=== PATIENT | male | born 1975 | race Hispanic/Latino ===

== ENCOUNTER 2021-04-01 06:19 | Inpatient (IN) | payer OTHER ==
[2021-04-01] VITALS (16 sets, daily range): BP systolic 101–135; BP diastolic 42–75
[~2021-04-01] VITALS: Ht 179.1 cm; Wt 88.9 kg
[2021-04-01 06:49] LABS: BASOPHILS % (AUTO) 0.5 % (0.0-5.0); EOSINOPHILS % (AUTO) 0.6 % (0.0-8.0); HEMATOCRIT 45.9 % (42-54); LYMPHOCYTES % (AUTO) 8.7 % (21.0-51.0); MEAN CORPUSCULAR HEMOGLOBIN 31.5 pg (27.0-33.0); MEAN CORPUSCULAR VOLUME 92.5 fL (79-99); MONOCYTES % (AUTO) 5.6 % (3.0-13.0); PLATELET COUNT (AUTO) 411 K/uL (130-400); RED BLOOD CELL COUNT(AUTO) 4.96 MIL/uL (4.50-6.20); RED CELL DISTRIBUTION WIDTH 12.4 % (11.0-15.5); WHITE BLOOD COUNT (AUTO) 17.7 K/uL (4.8-10.8)
[2021-04-01] MEDS ORDERED: ALBUTEROL 0.083% 2.5 MG/3 ML INH IH ONE (06:54)
[2021-04-01 07:00] LABS: INR 1.02 (0.85-1.15); PROTHROMBIN TIME 11.1 SEC (9.6-11.6)
[2021-04-01 07:16] LABS: B-TYPE NATRIURETIC PEPTIDE < 5 pg/mL (0-100)
[2021-04-01 07:17] LABS: ABG BASE EXCESS 2.6 mmol/L (-2.0-3.0); ABG HCO3 25.7 mmol/L (21.0-28.0); ABG OXYGEN SATURATION 90.9 % (95.0-99.0); ABG PCO2 35 mmHg (35-48)
[2021-04-01] MEDS ORDERED: IOHEXOL 350 MG/ML 100ML INFUS..BTL IV ONE (07:28)
[2021-04-01] MEDS ORDERED: ALBUTEROL 0.083% 2.5 MG/3 ML INH IH SCH (07:46)
[2021-04-01] MEDS: DEXAMETHASONE SOD PHOSPHATE 4 MG/ML 1ML VIAL IVP SCH ×2 (08:00→11:18)
[2021-04-01] MEDS ORDERED: AZITHROMYCIN 250 MG TABLET PO SCH (08:00)
[2021-04-01] MEDS ORDERED: CEFTRIAXONE 1G VIAL IVP SCH (08:00)
[2021-04-01 08:53] LABS: ALBUMIN 2.6 g/dL (3.5-5.0); BILIRUBIN,TOTAL 0.6 mg/dL (0.2-1.0); CREATININE 0.8 mg/dL (0.5-1.5); POTASSIUM 3.6 mmol/L (3.5-5.1); TOTAL PROTEIN, SERUM 6.5 g/dL (6.0-8.3)
[2021-04-01] MEDS ORDERED: LACTULOSE 20 GM/30 ML UDCUP PO PRN (09:00)
[2021-04-01] MEDS ORDERED: FAMOTIDINE 20MG VIAL IV SCH (09:00)
[2021-04-01] MEDS ORDERED: ONDANSETRON 4MG INJ IV PRN (09:00)
[2021-04-01] MEDS ORDERED: DEXAMETHASONE SOD PHOSPHATE 4 MG/ML 1ML VIAL IVP SCH (09:00)
[2021-04-01] MEDS ORDERED: ACETAMINOPHEN 325 MG TAB PO PRN (09:00)
[2021-04-01] MEDS ORDERED: ALBUTEROL INHALER 90MCG/INH IH PRN (09:00)
[2021-04-01 09:13] LABS: INR 1.04 (0.85-1.15); PROTHROMBIN TIME 11.3 SEC (9.6-11.6)
[2021-04-01] MEDS: ACETAMINOPHEN 325 MG TAB PO PRN ×3 (13:34→22:32)
[2021-04-02] VITALS (16 sets, daily range): BP systolic 99–129; BP diastolic 49–74
[2021-04-02 04:05] LABS: BASOPHILS % (AUTO) 0.2 % (0.0-5.0); EOSINOPHILS % (AUTO) 0.3 % (0.0-8.0); HEMATOCRIT 41.2 % (42-54); MEAN CORPUSCULAR HEMOGLOBIN 31.2 pg (27.0-33.0); MEAN CORPUSCULAR HGB CONC 34.5 g/dL (32.0-36.0); MEAN CORPUSCULAR VOLUME 90.5 fL (79-99); MONOCYTES % (AUTO) 6.2 % (3.0-13.0); NEUTROPHILS % (AUTO) 83.5 % (40.0-77.0); PLATELET COUNT (AUTO) 418 K/uL (130-400); RED BLOOD CELL COUNT(AUTO) 4.55 MIL/uL (4.50-6.20); RED CELL DISTRIBUTION WIDTH 12.1 % (11.0-15.5); WHITE BLOOD COUNT (AUTO) 15.1 K/uL (4.8-10.8)
[2021-04-02 04:11] LABS: CREATININE 0.7 mg/dL (0.5-1.5); POTASSIUM 4.1 mmol/L (3.5-5.1)
[2021-04-02] MEDS: ACETAMINOPHEN 325 MG TAB PO PRN (05:08)
[2021-04-02] MEDS: DEXAMETHASONE 4 MG TAB PO SCH ×2 (10:02→10:04)
[2021-04-02] MEDS: ENOXAPARIN SODIUM 40 MG/0.4 ML SYRINGE SQ SCH ×3 (10:02→10:04)
[2021-04-03] VITALS (8 sets, daily range): BP systolic 103–118; BP diastolic 58–74
[2021-04-03 04:48] LABS: BASOPHILS % (AUTO) 0.4 % (0.0-5.0); EOSINOPHILS % (AUTO) 0.5 % (0.0-8.0); LYMPHOCYTES % (AUTO) 10.1 % (21.0-51.0); MEAN CORPUSCULAR HEMOGLOBIN 31.4 pg (27.0-33.0); MEAN CORPUSCULAR HGB CONC 34.4 g/dL (32.0-36.0); MEAN CORPUSCULAR VOLUME 91.3 fL (79-99); MONOCYTES % (AUTO) 6.7 % (3.0-13.0); NEUTROPHILS % (AUTO) 79.2 % (40.0-77.0); PLATELET COUNT (AUTO) 406 K/uL (130-400); RED BLOOD CELL COUNT(AUTO) 4.49 MIL/uL (4.50-6.20); RED CELL DISTRIBUTION WIDTH 12.1 % (11.0-15.5); WHITE BLOOD COUNT (AUTO) 13.7 K/uL (4.8-10.8)
[2021-04-03 05:08] LABS: ALBUMIN 2.4 g/dL (3.5-5.0); BILIRUBIN,TOTAL 0.5 mg/dL (0.2-1.0); CREATININE 0.7 mg/dL (0.5-1.5); MAGNESIUM 2.1 mg/dL (1.80-2.40); POTASSIUM 3.8 mmol/L (3.5-5.1); TOTAL PROTEIN, SERUM 6.4 g/dL (6.0-8.3)
[2021-04-03] MEDS: DEXAMETHASONE 4 MG TAB PO SCH (09:00)
[2021-04-04] MEDS: ACETAMINOPHEN 325 MG TAB PO PRN (03:08)
[2021-04-04 03:18] VITALS: BP 105/58
[2021-04-04 04:09] LABS: BASOPHILS % (AUTO) 0.2 % (0.0-5.0); EOSINOPHILS % (AUTO) 0.3 % (0.0-8.0); HEMATOCRIT 40.4 % (42-54); LYMPHOCYTES % (AUTO) 13.5 % (21.0-51.0); MEAN CORPUSCULAR HEMOGLOBIN 31.6 pg (27.0-33.0); MEAN CORPUSCULAR HGB CONC 34.9 g/dL (32.0-36.0); MEAN CORPUSCULAR VOLUME 90.6 fL (79-99); MONOCYTES % (AUTO) 7.1 % (3.0-13.0); NEUTROPHILS % (AUTO) 76.5 % (40.0-77.0); PLATELET COUNT (AUTO) 439 K/uL (130-400); RED BLOOD CELL COUNT(AUTO) 4.46 MIL/uL (4.50-6.20); WHITE BLOOD COUNT (AUTO) 12.2 K/uL (4.8-10.8)
[2021-04-04 04:17] LABS: CREATININE 0.7 mg/dL (0.5-1.5); POTASSIUM 3.8 mmol/L (3.5-5.1)
[2021-04-04 07:45] VITALS: BP 110/66
[2021-04-04] MEDS: DEXAMETHASONE 4 MG TAB PO SCH (08:04)
[2021-04-04] MEDS: ENOXAPARIN SODIUM 40 MG/0.4 ML SYRINGE SQ SCH (09:00)
[2021-04-04 11:30] VITALS: BP 116/69
[2021-04-04 16:30] VITALS: BP 115/57
[2021-04-04 20:00] VITALS: BP 113/59
[2021-04-05] VITALS: BP 123/78
[2021-04-05 04:00] VITALS: BP 101/56
[2021-04-05 04:03] LABS: BASOPHILS % (AUTO) 0.2 % (0.0-5.0); EOSINOPHILS % (AUTO) 0.1 % (0.0-8.0); HEMATOCRIT 41.8 % (42-54); LYMPHOCYTES % (AUTO) 11.8 % (21.0-51.0); MEAN CORPUSCULAR HEMOGLOBIN 31.3 pg (27.0-33.0); MEAN CORPUSCULAR VOLUME 92.3 fL (79-99); MONOCYTES % (AUTO) 6.4 % (3.0-13.0); NEUTROPHILS % (AUTO) 79.4 % (40.0-77.0); PLATELET COUNT (AUTO) 440 K/uL (130-400); RED BLOOD CELL COUNT(AUTO) 4.53 MIL/uL (4.50-6.20); WHITE BLOOD COUNT (AUTO) 13.1 K/uL (4.8-10.8)
[2021-04-05 04:14] LABS: CREATININE 0.8 mg/dL (0.5-1.5); POTASSIUM 3.9 mmol/L (3.5-5.1)
[2021-04-05 07:50] VITALS: BP 90/51
[2021-04-05] MEDS: DEXAMETHASONE 4 MG TAB PO SCH (08:28)
[2021-04-05] MEDS: ENOXAPARIN SODIUM 40 MG/0.4 ML SYRINGE SQ SCH (08:28)
[2021-04-05 11:34] VITALS: BP 95/46
[2021-04-05 15:47] VITALS: BP 103/52
== END 2021-04-05 17:47 | disposition home or self-care (01) | DRG 177 ==
LOC: EDH 06:19 → EDHIP 06:20 → 2BH 11:50
PROVIDERS: ADMIT Internal Medicine; ATTEND Internal Medicine
PROC: 0W9B00Z Drainage of Left Pleural Cavity with Drainage Device, Open Approach (ICD-10-PCS; principal; 2021-04-01)
DX: U07.1 COVID-19 (principal); J12.82 Pneumonia due to coronavirus disease 2019; J96.01 Acute respiratory failure with hypoxia; J93.9 Pneumothorax, unspecified; E44.0 Moderate protein-calorie malnutrition; D68.59 Other primary thrombophilia; D72.828 Other elevated white blood cell count; J98.2 Interstitial emphysema; Z68.27 Body mass index [BMI] 27.0-27.9, adult
CPT/HCPCS: 36415; 36600; 71045; 71275; 80048; 80053; 82550; 82803; 83605; 83735; 83874; 83880; 84145; 84484; 85025; 85378; 85610; 86140; 93005; 94640; 94760; 99291; G0378; J1100; J1650; J8540; Q9967